=== PATIENT | male | born 1980 | race Caucasian/White ===

== ENCOUNTER → 2017-02-15 | Outpatient (CLI) | payer OTHER ==
--- NOTE | 2017-02-15 09:13 | CT ---
EXAMINATION TYPE: CT brain wo con DATE OF EXAM: 02/15/2017 9:01 AM COMPARISON: NONE HISTORY: 36-year-old male right-sided headache and right-sided Castillo's palsy, right-sided blurred visi on. G44.099; G51.0; H53.8 TECHNIQUE: Examination was done in axial plane without intravenous contrast. Coronal and sagittal r econstructions performed. CT DLP: 978.20 mGycm Automated exposure control for dose reduction was used. FINDINGS: There is no evidence of acute intracranial hemorrhage, acute ischemic changes, mass, mass-effect, or extra-axial fluid collection. There is no effacement of cerebral sulci or basal subarachnoid cister ns. There is no hydrocephalus. There is no midline shift. Garcia-white matter distinction is preserv ed. Rightward nasal septal deviation. Cerumen within both external auditory canals. Mastoid air cells wel l pneumatized. Lobulated mucosal thickening right sphenoid sinus and moderate mucosal thickening thro ughout the ethmoid air cells. Orbits and globes are intact. IMPRESSION: 1. No acute intracranial abnormality seen. 2. Moderate chronic ethmoid sinus disease. Rightward nasal septal deviation.
== END | disposition home or self-care (01) ==
LOC: RADCTMAIN 08:40
PROVIDERS: ATTEND Family Medicine
DX: G51.0 Bell's palsy (principal); J34.2 Deviated nasal septum; J34.9 Unspecified disorder of nose and nasal sinuses; H53.8 Other visual disturbances
CPT/HCPCS: 70450

== ENCOUNTER 2017-05-01 07:38 | Day surgery (SDC) | payer OTHER ==
[2017-04-25 12:44] VITALS: BMI 23.5
[~2017-05-01 07:38] MED LIST: ACETAMINOPHEN TAB 500 MG TAB PO ONE; DEXAMETHASONE SOD PHOSPHATE 10 MG/ML 1 ML VIAL IV ONE; DEXAMETHASONE SOD PHOSPHATE 4 MG/ML 1 ML VIAL IV ONE; HYDROmorphone 1 MG/ML 1 ML SYRINGE IVP PRN; LACTATED RINGERS 1,000 ML IV SCH; LIDOCAINE 1% 20 ML VIAL (10MG/ML) FOR IV START INTRADERMA PRN; METRONIDAZOLE NS PMX IV NR; MIDAZOLAM 2 MG/2 ML VIAL IV PRN; ONDANSETRON 4 MG/2 ML VIAL IVP ONE; SCOPOLAMINE 1.5MG/72HR PATCH TRANSDERM ONE; ceFAZolin 2 GM in SODIUM CHLORIDE 0.9% 100 ML IVPB NR
[2017-05-01] MEDS: OXYMETAZOLINE 0.05% NASL SPRAY 1 SPRAY BOTTLE NASAL ONE ×5 (08:01→08:16)
[2017-05-01] MEDS ORDERED: LIDOCAINE 1% INJ 10MG/ML (20 ML MDV) ONE (09:11)
[2017-05-01] MEDS ORDERED: fentaNYL (PF) 50 MCG/ML 2 ML AMP ONE (09:11)
[2017-05-01] MEDS ORDERED: PROPOFOL 10 MG/ML 20 ML VIAL IV ONE (09:11)
[2017-05-01] MEDS ORDERED: DEXAMETHASONE SOD PHOS (MDV) 100 MG/10 ML VIAL ONE (09:11)
[2017-05-01] MEDS ORDERED: SUCCINYLCHOLINE CHLORIDE 100 MG/5 ML SYR IV ONE (09:11)
[2017-05-01] MEDS ORDERED: MIDAZOLAM 2 MG/2 ML VIAL ONE (09:11)
[2017-05-01] MEDS ORDERED: BUPIVACAIN-EPI 0.5%-1:200,000 30 ML VIAL SQ ONE ×2 (09:26)
[2017-05-01] MEDS ORDERED: FLUORESCEIN STRIPS 1 MG STRIP MISCELLANE ONE (09:34)
[2017-05-01] MEDS ORDERED: EPINEPHrine 1 MG/ML (MDV) 30 ML VIAL TOPICAL ONE (09:36)
[2017-05-01 10:46] VITALS: TEMP 97.3
--- NOTE | 2017-05-01 10:53 | P.OP ---
Date of Procedure: 05/01/17 Preoperative Diagnosis: Chronic sinusitis Sinonasal polyposis Deviated nasal septum Hypertrophy of bilateral nasal turbinates Postoperative Diagnosis: Same Procedure(s) Performed: Septoplasty Bilateral functional endoscopic sinus surgery with polypectomy with bilateral maxillary antrostomies bilateral total ethmoidectomies and bilateral sphenoid sinusotomies with removal of diseased tissue Bilateral outfracture compression and submucosal resection of the inferior turbinates Endoscopic intranasal polypectomy Implants: Anesthesia: GETA Surgeon: Ze Crawford Estimated Blood Loss (ml): 20 Pathology: other (Sinonasal) Condition: stable Disposition: PACU Indications for Procedure: This is a 36-year-old white male who is had previous nasal trauma he also has chronic sinus infections and has been going on for many years 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 He had a baseball struck him in the nose causing an external and internal nasal deformity his sense of smell is been loss for years he was found have polyps bilaterally he had chronic sinus disease and I did review the films of the paranasal sinuses demonstrating chronic sinusitis of the maxillary ethmoid and sphenoid sinuses there was some clouding of the nasal frontal duct and I discussed this with the insurance people and I did approve sphenoid ethmoid and maxillary sinuses. The computed tomography scan report was very light of this description. Septum was very deviated inferior turbinates were large and it was bilateral intranasal polyps. Operative Findings: Patient had a deviated nasal septum severe and obstructive large obstructive inferior turbinates intranasal polyps bilaterally and polyps and diseased tissue in the maxillary ethmoid and sphenoid sphenoid sinuses Description of Procedure: This patient was taken to the operative room and placed in the supine position. A general inhalation anesthetic was administered to the patient by the department of anesthesia with a functioning IV line in place. The patient was monitored throughout the entire case by the department of anesthesia. The eyes were taped shut for protection. The patient was placed in a slight reverse Trendelenburg position. The patient had previously utilize Afrin nasal spray preoperatively. The nose was evaluated and the septum lateral nasal wall and inferior turbinates were injected with lidocaine 1% with epinephrine 1 100,000 bilaterally. Approximately 10 minutes were allowed wait for full vasoconstrictive effects to take place. At this point a caudal incision was made over the caudal portion of the left septum down to the mucoperichondrium. A mucoperichondrial flap was elevated on the left side and dissection was carried with use of tunnels posteriorly. We then made a crossover incision through the cartilage to the contralateral side and for the mucoperichondrial flap development was performed to the extent of visualization on the contralateral side. After the cartilage was freed with use of several crosshatching incisions and removal of some redundant strips of septal cartilage, the septum was straightened and placed back in the midline. The septum was sutured fixated to the ovarian groove. Excellent straightening occurred and the septum was visibly straight. Incision was closed with a 40 rapid Vicryl. We utilized a running nonlocking fashion for closure of the incision. A quilting stitch was used to reapproximate the septal flaps with use of a 40 rapid Vicryl. We then entered the nose with a 0 and 30 Garcia mariana endoscope. Previous to this we did inject the lateral nasal wall and middle turbinate and uncinate process with lidocaine 1% with epinephrine 1 100,000. Approximately 10 minutes were allowed wait for full vasoconstrictive effects to take place. Intranasal polyps were noted. They were noted bilaterally. The intranasal polyps were removed with use of a microdebrider. With use of a microdebrider and a pediatric backbiter, we took down the uncinate process bilaterally. We then opened the maxillary sinuses bilaterally. We utilized a microdebrider for this and entered the maxillary sinuses and removed diseased tissue and polypoid tissue. This was done bilaterally. After the maxillary sinuses were opened and the diseased tissue and polyps were removed we entered the ethmoid bulla and with use of a microdebrider and up-biting Mahin, we remove the anterior septations and remove diseased tissue from the anterior ethmoids with direct visualization. We then followed the fovea frontalis through the basal lamella and into the posterior ethmoid air cells and did a total ethmoidectomy with removal of polypoid material. Once the ethmoids cells were all taken down we then entered the sphenoid sinus medially and inferiorly underneath the inferior attachment of the superior turbinates. Polyps were removed from the nose. Ethmoid sinuses were opened totally. We inserted propel bilaterally which is a drug-eluting stent. Leoncio was then placed for control of bleeding. We did place a bilateral Merocel sponge pack which will be removed tomorrow morning by the patient. Attention was then paid to the inferior turbinates. The bilateral inferior turbinates were hypertrophic and obstructive. We entered the anterior portion of the inferior turbinates with use of a microdebrider. We remove bone and submucosal elements with use of a microdebrider bilaterally. The inferior turbinates underwent a submucosal resection with removal of submucosal tissue and bone. We obtained a much better and normal in size for breathing. The inferior turbinates were then outfractured and compressed with a Boyes nasal elevator. Excellent airway was obtained and was symmetric bilaterally. No bleeding was encountered.
[2017-05-01 11:27] VITALS: RESP 16
[2017-05-01] MEDS ORDERED: HYDROcodone/APAP 5-325MG 1 EACH TAB PO ONE (11:33)
[2017-05-01 11:47] VITALS: PULSE 82
[2017-05-01 12:20] VITALS: BP 126/87
== END 2017-05-01 12:25 | disposition home or self-care (01) ==
LOC: OR 07:38
PROVIDERS: ATTEND Otolaryngology
DX: J34.2 Deviated nasal septum (principal); J32.8 Other chronic sinusitis; J34.3 Hypertrophy of nasal turbinates; J33.8 Other polyp of sinus; Q38.2 Macroglossia; Z79.899 Other long term (current) drug therapy; G51.0 Bell's palsy; Z87.891 Personal history of nicotine dependence; Z79.52 Long term (current) use of systemic steroids; M95.0 Acquired deformity of nose
CPT/HCPCS: 88305; 88300; 30520; 31267; 31255; 31287; 30140; C2625; J0171; J2250; J1100 ×2; J0690; J2405; J2001; J3010; J0330; J2704

== ENCOUNTER → 2018-02-16 | Outpatient (CLI) | payer OTHER ==
--- NOTE | 2018-02-17 01:06 | MR ---
EXAMINATION TYPE: MR hand RT wo con DATE OF EXAM: 02/16/2018 COMPARISON: NONE HISTORY: Thumb pain Standard multiplanar, multisequence MRI departmental protocol Multiplanar, multisequence images of the right hand were acquired. FINDINGS: The metacarpals appear intact. Some is intact. The flexor and extensor tendon of the right thumb appears intact. Joint spaces are fairly well-maintained. I see no bony destructive process. The re are small fluid collections adjacent to the anterior aspect of third and fourth metacarpal heads c onsistent with synovial cysts. I see no fracture line. I see no evidence of soft tissue mass associat ed with the thumb. The carpal bones have normal signal pattern without evidence of edema. IMPRESSION: Small synovial cysts at the MP joints. No evidence of traumatic injury of the right thumb.
== END | disposition home or self-care (01) ==
LOC: RADMRIMAIN 08:14
PROVIDERS: ATTEND Orthopaedic Surgery
DX: M71.341 Other bursal cyst, right hand (principal)

== ENCOUNTER 2023-06-03 06:14 | Day surgery (SDC) | payer OTHER ==
[2023-05-29 08:47] VITALS: BMI 23.5
[~2023-06-03 06:14] MED LIST changes: -ACETAMINOPHEN TAB 500 MG TAB PO ONE; +ACETAMINOPHEN TAB 500 MG TAB PO PRN; -DEXAMETHASONE SOD PHOSPHATE 10 MG/ML 1 ML VIAL IV ONE; -DEXAMETHASONE SOD PHOSPHATE 4 MG/ML 1 ML VIAL IV ONE; +HEPARIN SODIUM,PORCINE/PF 5,000 UNIT/0.5 ML SYRINGE SQ PRN; -HYDROmorphone 1 MG/ML 1 ML SYRINGE IVP PRN; +LIDOCAINE 1% (10MG/ML) FOR IV START INTRADERMA PRN; -LIDOCAINE 1% 20 ML VIAL (10MG/ML) FOR IV START INTRADERMA PRN; -METRONIDAZOLE NS PMX IV NR; -MIDAZOLAM 2 MG/2 ML VIAL IV PRN; -SCOPOLAMINE 1.5MG/72HR PATCH TRANSDERM ONE; -ceFAZolin 2 GM in SODIUM CHLORIDE 0.9% 100 ML IVPB NR; +droPERidol 5 MG/2 ML VIAL IVP ONE; +metroNIDAZOLE-NS PMX 500 MG in SALINE 1 100ML.BAG IVPB PRN
[2023-06-03] MEDS ORDERED: HYDROmorphone 0.5 MG/0.5 ML SYRINGE IVP PRN (07:00)
[2023-06-03] MEDS ORDERED: SUCCINYLCHOLINE CHLORIDE 200 MG/10 ML VIAL IV ONE (07:32)
[2023-06-03] MEDS ORDERED: GLYCOPYRROLATE 0.2 MG/ML 2 ML VIAL ONE (07:32)
[2023-06-03] MEDS ORDERED: MIDAZOLAM 2 MG/2 ML VIAL ONE (07:32)
[2023-06-03] MEDS ORDERED: ROCURONIUM 10 MG/ML (5 ML VIAL) IV ONE (07:32)
[2023-06-03] MEDS ORDERED: NEOSTIGMINE 1 MG/ML 10 ML VIAL ONE (07:32)
[2023-06-03] MEDS ORDERED: KETOROLAC 15 MG/ML 1 ML VIAL ONE (07:32)
[2023-06-03] MEDS ORDERED: PROPOFOL 10 MG/ML 20 ML VIAL IV ONE (07:32)
[2023-06-03] MEDS ORDERED: LIDOCAINE 2% INJ 20 MG/ML (2 ML VIAL) ONE (07:32)
[2023-06-03] MEDS ORDERED: fentaNYL (PF) 50 MCG/ML 2 ML AMP ONE (07:32)
[2023-06-03] MEDS ORDERED: LIDOCAINE 1%-EPI 1:100,000 50 ML VIAL SQ ONE (08:14)
--- NOTE | 2023-06-03 08:29 | P.GSHP ---
History of Present Illness H&P Date: 06/03/23 Chief Complaint: Pilonidal cyst Is a 42-year-old male who's had chronic issues with pilonidal cyst. Patient's emesis for several years. He's had problems with intermittent drainage. Patient resents today for excision of pilonidal cyst. Patient aware that the wound will be packing postoperatively. Past Medical History Past Medical History: No Reported History Additional Past Medical History / Comment(s): pilonidal cyst History of Any Multi-Drug Resistant Organisms: None Reported Past Surgical History: Hernia Repair Additional Past Surgical History / Comment(s): rt inguinal hernia repair,nasal polyps removed Past Anesthesia/Blood Transfusion Reactions: No Reported Reaction Additional Past Anesthesia/Blood Transfusion Reaction / Comment(s): no hx blood transfusion Smoking Status: Former smoker - Past Family History Father Family Medical History: Coronary Artery Disease (CAD) Medications and Allergies Home Medications Medication Instructions Recorded Confirmed Type No Known Home Medications 05/29/23 06/03/23 History Allergies Allergy/AdvReac Type Severity Reaction Status Date / Time No Known Allergies Allergy Verified 06/03/23 06:43 Surgical - Exam Vital Signs Temp Pulse Resp BP Pulse Ox 97.6 F 52 L 18 116/64 98 06/03/23 06:43 06/03/23 06:43 06/03/23 06:43 06/03/23 06:43 06/03/23 06:43 - General well developed, well nourished, no distress - Eyes PERRL - ENT normal pinna - Neck no masses - Respiratory normal expansion - Cardiovascular Rhythm: regular - Abdomen Abdomen: soft, non tender - Integumentary Chronic pilonidal cyst with granulation tissue to evidence of drainage. An abscess. Assessment and Plan Assessment: Pilonidal cyst. We'll perform excision. Patient will require postoperative wound care.
--- NOTE | 2023-06-03 08:33 | P.OP ---
Date of Procedure: 06/03/23 Preoperative Diagnosis: Pilonidal cyst Postoperative Diagnosis: Pilonidal cyst Procedure(s) Performed: Excision of pilonidal cyst Anesthesia: VARGAS Surgeon: Leonardo Calderon Estimated Blood Loss (ml): 5 Pathology: other (Pilonidal cyst) Condition: stable Disposition: PACU Description of Procedure: Patient's placed the operative table in the prone position after receiving general endotracheal tube anesthesia. His buttocks were prepped and draped usual fashion. Patient had a pilonidal cyst. Evidence of a chronic abscess on the left upper area cyst. Elliptical skin incision was made around abdominal cyst in his left cautery subcu tissues were divided. The specimens of path ology. The wound was then packed with wet-to-dry Kerlix dressing. Patient tolerated the procedure well. He was sent to recovery room in stable condition.
[2023-06-03 08:45] VITALS: TEMP 97.1
[2023-06-03 09:30] VITALS: BP 110/69; PULSE 50; RESP 15
== END 2023-06-03 09:55 | disposition home health service (06) ==
LOC: OR 06:14
PROVIDERS: ATTEND Surgery
DX: L05.01 Pilonidal cyst with abscess (principal); Z87.891 Personal history of nicotine dependence
CPT/HCPCS: 88304; 11771; J2250; J0330; J2710; J0690; J2405; J3010; J1885; J2704; J1644; J2001

== ENCOUNTER → 2023-07-11 | Outpatient (CLI) | payer OTHER ==
[2023-07-11 11:41] LABS: Chol/HDL Ratio 3.28 Ratio; LDL Cholesterol,Calculated 109.9 mg/dL (0.0-131.0)
== END | disposition home or self-care (01) ==
LOC: LABWHC1 06:58
PROVIDERS: ATTEND Internal Medicine Interventional Cardiology
DX: E78.2 Mixed hyperlipidemia (principal)
CPT/HCPCS: 36415; 80061

== ENCOUNTER → 2024-02-03 | Outpatient (CLI) | payer OTHER ==
[2024-02-03 11:41] LABS: ALT 25 U/L (10-49); AST 20 U/L (14-35); Chol/HDL Ratio 3.42 Ratio; LDL Cholesterol,Calculated 113.5 mg/dL (0.0-131.0); VLDL Calculation 13.84 mg/dL (5.00-40.00)
== END | disposition home or self-care (01) ==
LOC: LABWHC1 07:07
PROVIDERS: ATTEND Internal Medicine Interventional Cardiology
DX: E78.2 Mixed hyperlipidemia (principal)
CPT/HCPCS: 36415; 80061; 84450; 84460